=== PATIENT | male | born 1965 | race Caucasian/White ===

== ENCOUNTER → 2024-01-20 | Outpatient (CLI) | payer OTHER ==
[~2024-01-20] VITALS: Ht 180.3 cm; Wt 114.5 kg
[~2024-01-20] MED LIST: ADDERALL20 MG PO; AMBIEN 10MG10 MG PO; D3-5050000 IU PO; FLOMAX 0.40.4 MG/CAP PO; Gadoterate 20 ML VIAL IV ONE; HCTZ 25MG TAB25 MG PO; LR 1,000 ML IV SCH; MAGNESIUM250 M1 PO; MIRAPEX0.25 MG PO; MOBIC15 MG PO; Midazolam 2 MG/2 ML VIAL ONE; NORCO 325 MG-101 TAB PO; TOPROL XL 50MG50 MG PO; VITAMIN C500 MG PO; VITAMIND3 5000 PO; ZESTRIL 20MG TA20 MG PO
[2024-01-20 07:58] VITALS: BP 165/98; PULSE 80; TEMP 98.1
[2024-01-20 10:00] VITALS: BP 125/74; PULSE 73
[2024-01-20 10:15] VITALS: BP 131/84; PULSE 79
[2024-01-20 10:30] VITALS: BP 137/80; PULSE 81
== END ==
LOC: COL.RAD 07:06
DX: M48.54XA Collapsed vertebra, not elsewhere classified, thoracic region, initial encounter for fracture (principal); C79.51 Secondary malignant neoplasm of bone; D18.09 Hemangioma of other sites; M48.04 Spinal stenosis, thoracic region; M48.061 Spinal stenosis, lumbar region without neurogenic claudication; M48.07 Spinal stenosis, lumbosacral region; R59.0 Localized enlarged lymph nodes
CPT/HCPCS: A9575; J2250; J2704